=== PATIENT | female | born 1960 | race African-American/Black ===

== ENCOUNTER 2021-06-25 15:07 | Inpatient (IN) | payer OTHER ==
[2021-06-25] MEDS ORDERED: ACETAMINOPHEN 325 MG TABLET (FP) PO PRN ×2 (22:18)
[2021-06-25] MEDS ORDERED: MAGNESIUM CITRATE 300 ML BOTTLE PO PRN (22:18)
[2021-06-25] MEDS ORDERED: MAGNESIUM HYDROX 2400MG/30ML ORAL SUSPENSION 30 ML CUP PO PRN (22:18)
[2021-06-25] MEDS ORDERED: IBUPROFEN 400 MG TABLET (FP) PO PRN (22:18)
[2021-06-25] MEDS ORDERED: MENTHOL/PHENOL 1 EACH UD MM PRN (22:18)
[2021-06-25] MEDS ORDERED: BISMUTH SUBSALICYLATE 524 MG/30 ML PO PRN (22:18)
[2021-06-25] MEDS ORDERED: ONDANSETRON *ODT* 4 MG TABLET SL PRN (22:18)
[2021-06-25] MEDS ORDERED: NICOTINE POLACRILEX 2 MG GUM BUC PRN (22:18)
[2021-06-25] MEDS ORDERED: MAG HYDROX/AL HYDROX/SIMETH 30 ML UNIT-DOSE CUP PO PRN (22:18)
[2021-06-25] MEDS ORDERED: chlordiazePOXIDE HCL 25 MG CAPSULE PO PRN (22:19)
[2021-06-25 22:42] VITALS: BMI 29.8
[2021-06-26] MEDS: chlordiazePOXIDE HCL 25 MG CAPSULE PO SCH ×5 (01:28→22:27)
[2021-06-26] MEDS: METHOCARBAMOL 500 MG TABLET PO PRN (06:19)
[2021-06-26] MEDS: PRENATAL VITAMINS W/ FOLIC ACID TABLET (FP) PO SCH (10:17)
[2021-06-26] MEDS: hydrOXYzine PAMOATE 25 MG CAPSULE (FP) PO PRN ×2 (10:17→17:54)
[2021-06-26 10:35] LABS: HEMATOCRIT 36.9 % (32.4-45.2); HEMOGLOBIN 11.4 GM/dL (10.7-15.3); MCH 24.5 pg (25.7-33.7); MEAN CELL VOLUME 79.2 fl (80-96); MEAN PLT VOLUME 8.8 fl (7.5-11.1); PLATELET COUNT 220 10^3/uL (134-434); RBC 4.66 M/mm3 (3.60-5.2); RDW 14.8 % (11.6-15.6); WHITE BLOOD COUNT 2.7 K/mm3 (4.0-10.0)
[2021-06-26] MEDS ORDERED: methaDONE HCL 10 MG TABLET PO ONE (10:52)
[2021-06-26 10:55] LABS: BLOOD UREA NITROGEN 9.9 mg/dL (7-18); CALCIUM 9.5 mg/dL (8.5-10.1)
[2021-06-26 11:00] LABS: BILIRUBIN,TOTAL 0.5 mg/dL (0.2-1); CREATININE 0.9 mg/dL (0.55-1.3); TOT PROT 7.3 g/dl (6.4-8.2)
[2021-06-26] MEDS ORDERED: methaDONE 40 MG, methaDONE 30 MG PO ONE (11:00)
[2021-06-26] MEDS ORDERED: methaDONE HCL 10 MG TABLET ONE (12:35)
[2021-06-26] MEDS ORDERED: methaDONE HCL 40 MG DISPERSABLE TABLET ONE (12:36)
[2021-06-26] MEDS: LISINOPRIL 10 MG TABLET PO SCH (20:41)
[2021-06-26] MEDS: amLODIPine BESYLATE 5 MG TABLET (FP) PO SCH (20:42)
[2021-06-26] MEDS: ELVITEG/COB/EMTRI/TENOF (GENVOYA) TABLET (NF) PO SCH (22:26)
[2021-06-26] MEDS: THIAMINE HCL 100 MG TABLET (FP) PO SCH (22:27)
[2021-06-26] MEDS: MELATONIN 5 MG TABLETS PO SCH (23:46)
[2021-06-27] MEDS ORDERED: methaDONE HCL 40 MG DISPERSABLE TABLET ONE (04:08)
[2021-06-27] MEDS ORDERED: methaDONE HCL 10 MG TABLET ONE (04:08)
[2021-06-27] MEDS ORDERED: methaDONE HCL 10 MG TABLET PO SCH (06:00)
[2021-06-27] MEDS: methaDONE 40 MG, methaDONE 30 MG PO SCH (07:13)
[2021-06-27] MEDS: chlordiazePOXIDE HCL 25 MG CAPSULE PO SCH ×4 (07:14→22:25)
[2021-06-27] MEDS: hydrOXYzine PAMOATE 25 MG CAPSULE (FP) PO PRN ×3 (07:15→17:55)
[2021-06-27] MEDS: amLODIPine BESYLATE 5 MG TABLET (FP) PO SCH (10:43)
[2021-06-27] MEDS: LISINOPRIL 10 MG TABLET PO SCH (10:43)
[2021-06-27] MEDS: PRENATAL VITAMINS W/ FOLIC ACID TABLET (FP) PO SCH (10:43)
[2021-06-27] MEDS: METHOCARBAMOL 500 MG TABLET PO PRN (10:43)
[2021-06-27] MEDS: ELVITEG/COB/EMTRI/TENOF (GENVOYA) TABLET (NF) PO SCH (10:44)
[2021-06-27] MEDS: THIAMINE HCL 100 MG TABLET (FP) PO SCH (22:25)
[2021-06-27] MEDS: MELATONIN 5 MG TABLETS PO SCH (22:25)
[2021-06-28] MEDS ORDERED: chlordiazePOXIDE HCL 10 MG CAPSULE PO PRN
[2021-06-28] MEDS ORDERED: methaDONE HCL 10 MG TABLET ONE (04:19)
[2021-06-28] MEDS ORDERED: methaDONE HCL 40 MG DISPERSABLE TABLET ONE (04:19)
[2021-06-28] MEDS: chlordiazePOXIDE HCL 10 MG CAPSULE PO SCH ×3 (06:30→18:39)
[2021-06-28] MEDS: methaDONE 40 MG, methaDONE 30 MG PO SCH (06:58)
[2021-06-28] MEDS: LISINOPRIL 10 MG TABLET PO SCH (10:39)
[2021-06-28] MEDS: METHOCARBAMOL 500 MG TABLET PO PRN (10:39)
[2021-06-28] MEDS: hydrOXYzine PAMOATE 25 MG CAPSULE (FP) PO PRN (10:39)
[2021-06-28] MEDS: PRENATAL VITAMINS W/ FOLIC ACID TABLET (FP) PO SCH (10:39)
[2021-06-28] MEDS: amLODIPine BESYLATE 5 MG TABLET (FP) PO SCH (10:39)
[2021-06-28] MEDS: ELVITEG/COB/EMTRI/TENOF (GENVOYA) TABLET (NF) PO SCH (10:40)
[2021-06-29] MEDS: THIAMINE HCL 100 MG TABLET (FP) PO SCH ×2 (00:42→22:36)
[2021-06-29] MEDS: MELATONIN 5 MG TABLETS PO SCH ×2 (00:42→22:36)
[2021-06-29] MEDS: chlordiazePOXIDE HCL 10 MG CAPSULE PO SCH ×3 (00:42→19:19)
[2021-06-29] MEDS ORDERED: methaDONE HCL 10 MG TABLET ONE (04:18)
[2021-06-29] MEDS ORDERED: methaDONE HCL 40 MG DISPERSABLE TABLET ONE (04:19)
[2021-06-29] MEDS: methaDONE 40 MG, methaDONE 30 MG PO SCH (06:19)
[2021-06-29] MEDS: PRENATAL VITAMINS W/ FOLIC ACID TABLET (FP) PO SCH (11:03)
[2021-06-29] MEDS: LISINOPRIL 10 MG TABLET PO SCH (11:04)
[2021-06-29] MEDS: amLODIPine BESYLATE 5 MG TABLET (FP) PO SCH (11:04)
[2021-06-29] MEDS: METHOCARBAMOL 500 MG TABLET PO PRN (11:04)
[2021-06-29] MEDS: ELVITEG/COB/EMTRI/TENOF (GENVOYA) TABLET (NF) PO SCH (11:04)
[2021-06-29] MEDS: hydrOXYzine PAMOATE 25 MG CAPSULE (FP) PO PRN (11:04)
[2021-06-30] MEDS ORDERED: methaDONE HCL 40 MG DISPERSABLE TABLET ONE (04:00)
[2021-06-30] MEDS ORDERED: methaDONE HCL 10 MG TABLET ONE (04:00)
[2021-06-30] MEDS ORDERED: chlordiazePOXIDE HCL 10 MG CAPSULE PO ONE (05:00)
[2021-06-30] MEDS: methaDONE 40 MG, methaDONE 30 MG PO SCH (06:15)
[2021-06-30 08:23] VITALS: TEMP 97.1
[2021-06-30 09:55] VITALS: BP 127/72; PULSE 66
[2021-06-30] MEDS ORDERED: LOPERAMIDE HCL 2 MG CAPSULE PO ONE (10:33)
[2021-06-30] MEDS: PRENATAL VITAMINS W/ FOLIC ACID TABLET (FP) PO SCH (10:48)
[2021-06-30] MEDS: LISINOPRIL 10 MG TABLET PO SCH (10:49)
[2021-06-30] MEDS: amLODIPine BESYLATE 5 MG TABLET (FP) PO SCH (10:49)
[2021-06-30] MEDS: ELVITEG/COB/EMTRI/TENOF (GENVOYA) TABLET (NF) PO SCH (10:50)
== END 2021-06-30 12:20 | disposition other institution (70) | DRG 773 ==
LOC: YASAS 15:07 → Y6N 06-26 00:34
PROVIDERS: ADMIT Allergy & Immunology; ATTEND Allergy & Immunology
PROC: HZ2ZZZZ Detoxification Services for Substance Abuse Treatment (ICD-10-PCS; principal; 2021-06-26)
DX: F10.230 Alcohol dependence with withdrawal, uncomplicated (principal); F11.20 Opioid dependence, uncomplicated; F10.280 Alcohol dependence with alcohol-induced anxiety disorder; F10.282 Alcohol dependence with alcohol-induced sleep disorder; F10.24 Alcohol dependence with alcohol-induced mood disorder; F32.A Depression, unspecified; Z21 Asymptomatic human immunodeficiency virus [HIV] infection status; I10 Essential (primary) hypertension; D72.819 Decreased white blood cell count, unspecified; W07.XXXA Fall from chair, initial encounter; Y92.238 Other place in hospital as the place of occurrence of the external cause; Z91.011 Allergy to milk products
CPT/HCPCS: 36415; 80053; 85027; 86780; C9803-CS; U0003; U0005

== ENCOUNTER 2024-11-11 16:51 | Inpatient (IN) | payer OTHER ==
[2024-11-11 17:45] VITALS: BMI 29.3
[2024-11-11] MEDS ORDERED: NICOTINE POLACRILEX 2 MG GUM BUC PRN (18:01)
[2024-11-11] MEDS ORDERED: NALOXONE (NARCAN) HCL 4 MG/0.1 ML SPRAY NS PRN (18:01)
[2024-11-11] MEDS ORDERED: hydrOXYzine PAMOATE 25 MG CAPSULE (FP) PO PRN (18:01)
[2024-11-11] MEDS ORDERED: BENZONATATE 200 MG CAPSULE PO PRN (18:01)
[2024-11-11] MEDS ORDERED: MAGNESIUM HYDROX 2400MG/30ML ORAL SUSPENSION 30 ML CUP PO PRN (18:01)
[2024-11-11] MEDS ORDERED: ONDANSETRON *ODT* 4 MG TABLET SL PRN (18:01)
[2024-11-11] MEDS ORDERED: ACETAMINOPHEN 325 MG TABLET (FP) PO PRN (18:01)
[2024-11-11] MEDS ORDERED: guaiFENesin 600 MG TABLET.ER (FP) PO PRN (18:01)
[2024-11-11] MEDS ORDERED: IBUPROFEN 400 MG TABLET (FP) PO PRN (18:01)
[2024-11-11] MEDS ORDERED: POLYETHYLENE GLYCOL (HEALTHYLAX) 3350 17 GM PACKET PO PRN (18:01)
[2024-11-11] MEDS ORDERED: BISMUTH SUBSALICYLATE 524 MG/30 ML PO PRN (18:01)
[2024-11-11] MEDS ORDERED: LORazepam 1 MG TABLET PO PRN (18:01)
[2024-11-11] MEDS ORDERED: LOPERAMIDE HCL 2 MG CAPSULE PO PRN (18:01)
[2024-11-11] MEDS ORDERED: DICYCLOMINE HCL 10 MG CAPSULE PO PRN (18:01)
[2024-11-11] MEDS ORDERED: BENZOCAINE/MENTHOL (CHLORASEPTIC ) LOZENGE MM PRN (18:01)
[2024-11-11] MEDS ORDERED: IBUPROFEN 600 MG TABLET (FP) PO PRN (18:01)
[2024-11-11] MEDS ORDERED: MAG HYDROX/AL HYDROX/SIMETH 30 ML UNIT-DOSE CUP PO PRN (18:01)
[2024-11-11] MEDS ORDERED: LORazepam 2 MG/ML SDV VIAL ONE (18:37)
[2024-11-11] MEDS: LORazepam 2 MG/ML SDV VIAL IM ONE (18:45)
[2024-11-11] MEDS ORDERED: TRIMETHOBENZAMIDE HCL 200MG/2ML INJ IM PRN (19:10)
[2024-11-11] MEDS: amLODIPine BESYLATE 5 MG TABLET (FP) PO SCH (19:25)
[2024-11-11] MEDS: LISINOPRIL 10 MG TABLET PO SCH (19:25)
[2024-11-11] MEDS: LORazepam 2 MG TABLET PO SCH (22:10)
[2024-11-11] MEDS: MELATONIN 5 MG TABLETS PO SCH (22:11)
[2024-11-11] MEDS: THIAMINE 100 MG TABLET PO SCH (22:11)
[2024-11-12] MEDS: ELVITEG/COB/EMTRI/TENOF (GENVOYA) TABLET PO SCH (07:10)
[2024-11-12 08:15] LABS: CHLORIDE 103 mmol/L (98-107); SODIUM 140 mmol/L (136-145)
[2024-11-12 08:17] LABS: CALCIUM 9.9 mg/dL (8.5-10.1)
[2024-11-12 08:18] LABS: ALBUMIN 3.6 g/dl (3.4-5.0); ANION GAP 7 mmol/L (4-13); BLOOD UREA NITROGEN 18.4 mg/dL (7-18); CO2 30 mmol/L (21-32); GLUCOSE,RANDOM 114 mg/dL (74-106)
[2024-11-12 08:21] LABS: CREATININE 1.1 mg/dL (0.55-1.3); SGOT/AST 27 U/L (15-37); SGPT/ALT 28 U/L (13-61)
[2024-11-12 08:22] LABS: BILIRUBIN,TOTAL 0.6 mg/dL (0.2-1); TOT PROT 7.7 g/dl (6.4-8.2)
[2024-11-12 08:24] LABS: ALK PHOS 93 U/L (45-117); HEMATOCRIT 39.9 % (34.1-44.9); HEMOGLOBIN 12.2 g/dL (11.2-15.7); MCHC 30.6 g/dl (32.2-35.5); MEAN CELL VOLUME 79.2 fl (79.4-94.8); MEAN PLT VOLUME 10.6 fl (9.4-12.3); PLATELET COUNT 184 x10^3/uL (182-369); RDW 15.9 % (12.4-16.4)
[2024-11-12] MEDS: PRENATAL VITAMINS W/ FOLIC ACID TABLET (FP) PO SCH (09:44)
[2024-11-12] MEDS: BACLOFEN 10 MG TABLET (FP) PO PRN (09:46)
[2024-11-12] MEDS: methaDONE 80 MG, methaDONE 10 MG PO SCH (09:57)
[2024-11-12] MEDS: methaDONE HCL 10 MG TABLET PO SCH (10:23)
[2024-11-12] MEDS: ATORVASTATIN CA 20 MG TABLET (FP) PO SCH (22:20)
[2024-11-13] MEDS: LORazepam 1 MG TABLET PO SCH (05:44)
[2024-11-13] MEDS ORDERED: BIKTARVY PO SCH (10:00)
[2024-11-13] MEDS ORDERED: amLODIPine BESYLATE 10 MG TABLET (FP) PO SCH (10:00)
[2024-11-13] MEDS: BICTEGRAV/EMTRICIT/TENOFOV (BIKTARVY) 50-200-25 MG TABLET PO SCH (10:22)
[2024-11-13] MEDS: PANTOPRAZOLE 20 MG TABLET PO SCH (10:23)
[2024-11-13] MEDS: amLODIPine BESYLATE 10 MG TABLET (FP) PO SCH (10:23)
[2024-11-14] MEDS ORDERED: LORazepam 0.5 MG TABLET PO PRN
[2024-11-14] MEDS: LORazepam 0.5 MG TABLET PO SCH (05:50)
[2024-11-14] MEDS ORDERED: FAMOTIDINE 20 MG TABLET PO SCH (22:00)
[2024-11-15] MEDS: LORazepam 0.5 MG TABLET PO ONE (05:36)
[2024-11-15 09:32] VITALS: BP 128/78; PULSE 66; RESP 20; TEMP 96.6
== END 2024-11-15 09:25 | disposition home or self-care (01) | DRG 773 ==
LOC: YASAS 16:51 → Y3N 18:54
PROVIDERS: ADMIT Allergy & Immunology; ATTEND Allergy & Immunology
PROC: HZ2ZZZZ Detoxification Services for Substance Abuse Treatment (ICD-10-PCS; principal; 2024-11-11)
DX: F10.230 Alcohol dependence with withdrawal, uncomplicated (principal); F11.20 Opioid dependence, uncomplicated; F17.210 Nicotine dependence, cigarettes, uncomplicated; F41.9 Anxiety disorder, unspecified; Z21 Asymptomatic human immunodeficiency virus [HIV] infection status; I10 Essential (primary) hypertension; E78.5 Hyperlipidemia, unspecified; Z79.899 Other long term (current) drug therapy; R26.89 Other abnormalities of gait and mobility; S90.31XD Contusion of right foot, subsequent encounter; X58.XXXD Exposure to other specified factors, subsequent encounter; Z99.89 Dependence on other enabling machines and devices
CPT/HCPCS: 36415; 80053; 80305; 80307; 85027; 86780; 93005; 93010; J0475